=== PATIENT | female | born 1930 | race Caucasian/White ===

== ENCOUNTER 2018-04-13 11:33 | Observation (INO) ==
[2018-04-13 20:37] LABS: BASO# 0.04 X1000 (0.0-0.2); BASO% 0.3 % (0.0-0.8); EOS# 0.05 X1000 (0.0-0.7); EOS% 0.4 % (0.0-10.0); HEMATOCRIT 37.5 % (37.0-47.0); HEMOGLOBIN 11.9 g/dL (12.0-16.0); IMM GRAN% 0.8 % (0.0-0.5); LYMPH# 2.67 X1000 (1.2-3.4); LYMPH% 21.7 % (20.5-51.1); MCH 29.3 PG (27-31); MCHC 31.7 g/dL (33-37); MCV 92.4 FL (81-99); MONO# 1.12 X1000 (0.11-0.59); MONO% 9.1 % (1.7-9.3); MPV 9.6 FL (7.4-10.4); NEUT% 67.7 % (42.2-75.2); PLT 316 X1000 (130-400); RBC 4.06 XMIL (4.2-5.4); RDW 13.2 % (11.5-14.5); WBC 12.28 X1000 (4.8-10.8)
[2018-04-13 20:57] LABS: CALCIUM 9.8 mg/dL (8.8-10.2); CREATININE 0.9 mg/dL (0.5-0.9); POTASSIUM 4.4 mmol/L (3.5-5.1)
[2018-04-13] MEDS ORDERED: VANCOMYCIN 1 GM/NS 1 GM/250 ML IVPB IV ONE (21:03)
[2018-04-13] MEDS ORDERED: COLCRYS PO ONE ×3 (22:14→22:29)
[2018-04-13] MEDS ORDERED: DECADRON IV ONE (22:15)
[2018-04-13 22:58] LABS: CHOLESTEROL 164 mg/dL (0-200); HDL 66 mg/dL (45-65); LDL 77 mg/dL; TRIGLYCERIDES 105 mg/dL (35-135); VLDL 21 mg/dL
[2018-04-13] MEDS ORDERED: ZOFRAN IV PRN (23:04)
[2018-04-13] MEDS ORDERED: TYLENOL PO PRN (23:04)
--- NOTE | 2018-04-14 06:54 | HISTORY AND PHYSICAL ---
CHIEF COMPLAINT: Right hand pain and swelling. HISTORY OF PRESENT ILLNESS: This is a very pleasant 88-year-old female lying in the ER stretcher, answers all questions appropriately. She states that over the last few days, her hand has become more and more tender and swollen. Her daughter is at the bedside and supports what her mother is saying. Patient has a history of gouty arthritis, osteoarthritis, hypertension, hyperlipidemia, hypothyroidism, and has had a valve repair though she is unsure if it was aortic or mitral. It was bovine in nature. The patient received a hand x-ray and laboratory data in the emergency room. She will be admitted in observation status for further evaluation and treatment. PAST MEDICAL HISTORY: See HPI. PREVIOUS SURGICAL HISTORY: 1. Valve repair, unknown whether it was mitral or aortic. It was bovine in nature. 2. Hysterectomy. SOCIAL HISTORY: Lives at home. No tobacco, alcohol or illicit drugs. FAMILY HISTORY: One parent had nonspecific cardiac disease. Denies any other illness in family members. ALLERGIES: No known drug allergies. HOME MEDICATIONS: A list of home medications is not obtainable at this time. Order was placed for nursing to place medications in the computer. These will be restarted when appropriate. PHYSICAL EXAMINATION: VITAL SIGNS: Temp 98 degrees, pulse 86, respirations 16, blood pressure 127/52, oxygen saturation 100%. GENERAL: Very pleasant 88-year-old female, alert and oriented x3. Answers all questions appropriately. No acute distress. HEENT: Head is atraumatic, normocephalic. Pupils equal, round and reactive to light. Extraocular eye movements intact. Sclerae nonicteric. Conjunctivae is pink. Oral mucosa is moist. NECK: Supple. No JVD. No thyromegaly. Trachea is midline. No cervical lymphadenopathy. CARDIAC: S1, S2 appreciated. Systolic ejection murmur noted greater on the left side. No gallops. No rubs. Old midline incision line scar noted on chest. LUNGS: Clear to auscultation bilaterally. No rhonchi, wheezes, rales. Symmetric rise and fall of respirations. ABDOMEN: Soft, nondistended, nontender. Bowel sounds present all 4 quadrants. Normoactive. No pulsatile masses. No organomegaly. EXTREMITIES: Lower extremities: No cyanosis, clubbing or edema. 2+ pedal pulses bilaterally. Upper extremities: Left arm, no cyanosis, clubbing or edema. Right arm: Edema mid forearm to hand. No erythema. Tender to palpation. Warm to touch. Increased swelling in the MCV and PIP joint. There was swelling in all MCP and PIP joints. The patient was not able to make a closed fist and also would not allow passive range of motion in her wrist or bend her wrist herself related to pain. GENITOURINARY: No bladder distention. SKIN: Warm, dry and intact. No acute lesions or rash. DIAGNOSTIC DATA: X-ray of the right hand shows advanced osteoarthritis of the hand LABORATORY DATA: WBC 12.28, hemoglobin 11.9, hematocrit 37.5, platelet count 316,000. Sodium 141, potassium 4.4, chloride 102, carbon dioxide 26, BUN 20, creatinine 0.9, glucose 109, uric acid 6. ASSESSMENT AND PLAN: 1. Gouty arthritis flare versus septic joint. Appears to be a gout flare. Patient has had gout flare in the past. We will give 1.2 of Colchicine one time as well as 2 mg of dexamethasone IV. Defer further treatment to Ortho after their consultation. Patient received 1 gram of vancomycin in the emergency room; however, does not appear to be a septic joint or any type of cellulitis. We will not continue antibiotics at this time. Again, we will defer to primary team. 2. Hypertension. We will continue patient's home medications when they have been reconciled. 3. Hyperlipidemia. We will continue patient's home medications once they have been placed in the computer. Check a lipid profile. 4. Hypothyroidism. Check a TSH. We will continue home medications when reconciled. Further recommendations based on patient's clinical course. Dictated by GREG Sharma for Nohemi Nieto MD cc: GREG Sharma MD Kenneth E. Mashburn I performed an independent exam of this patient at bedside with PHARMACY AFFAIRS ASSISTANT and discussed the above plan with PHARMACY AFFAIRS ASSISTANT. It was difficult to assess pt's passive or active range of movement to discern arthritic vs. soft tissue inflammatory etiology. Pt did display evidence of synovitis of the R wrist. Pt. does have inflammatory arthritic signs. An arthrocentesis of joint by orthopedist will illuminate etiology better. Clinical response to above treatment may also help. MTDD
[2018-04-14 07:34] LABS: INR 1.04; PROTIME 14.4 Seconds (11.0-16.0)
[2018-04-14 07:55] LABS: AGAP 13; BUN 20 mg/dL (8-22); CALCIUM 9.3 mg/dL (8.8-10.2); CHLORIDE 105 mmol/L (98-107); COSMO 286; CREATININE 0.8 mg/dL (0.5-0.9); ESTIMATED GFR > 60; GLUCOSE 135 mg/dL (70-104); POTASSIUM 4.3 mmol/L (3.5-5.1); SODIUM 141 mmol/L (136-145); TCO2 23 mmol/L (25-35)
[2018-04-14 08:04] LABS: BASO# 0.01 X1000 (0.0-0.2); BASO% 0.1 % (0.0-0.8); HEMATOCRIT 36.2 % (37.0-47.0); HEMOGLOBIN 11.5 g/dL (12.0-16.0); IMM GRAN# 0.07 X1000 (0.0-0.04); IMM GRAN% 0.6 % (0.0-0.5); LYMPH# 1.03 X1000 (1.2-3.4); MCH 29.1 PG (27-31); MCHC 31.8 g/dL (33-37); MCV 91.6 FL (81-99); MONO# 0.18 X1000 (0.11-0.59); MONO% 1.6 % (1.7-9.3); MPV 9.7 FL (7.4-10.4); NEUT# 10.13 X1000 (1.4-6.5); NEUT% 88.7 % (42.2-75.2); PLT 303 X1000 (130-400); RBC 3.95 XMIL (4.2-5.4); RDW 12.9 % (11.5-14.5); WBC 11.42 X1000 (4.8-10.8)
[2018-04-14 08:27] LABS: BANDS 2 % (0-1); LYMPHS 4 % (21-51); SEGS 94 % (42-75)
[2018-04-14] MEDS ORDERED: PRINIVIL PO SCH (09:00)
--- NOTE | 2018-04-14 09:05 | CONSULTATION ---
DATE OF CONSULTATION: 04/14/2018 CHIEF COMPLAINT: Right hand pain and swelling. HISTORY OF PRESENT ILLNESS: This is an 88-year-old female who is lying in the bed comfortably. She reports that over the past week or so, her right hand has been swelling and becoming more painful. Her family is at the bedside and states that she does have a history of gout and that this hand has flared up similarly in the past. They report she also has history of osteoarthritis and high blood pressure with hypothyroidism. She got an x-ray several days ago at her doctor's office and then came to the emergency room for evaluation and treatment. PAST MEDICAL HISTORY: 1. Gout. 2. Arthritis. 3. High blood pressure. 4. Hyperlipidemia. 5. Hypothyroidism. 6. She states she has heart problems with some sort of aortic or mitral valve repair, she is unsure. PAST SURGICAL HISTORY: The valve repair and not sure if it is mitral or aortic. She has also had a hysterectomy. SOCIAL HISTORY: She lives at home. She denies alcohol, tobacco, or drug use. FAMILY HISTORY: Positive for cardiac disease. ALLERGIES: There are no known drug allergies. MEDICATIONS: She is on B12 1000 mcg daily, Aricept 10 mg daily, Pepcid 20 mg daily, Flonase daily, lisinopril 5 mg daily, lovastatin 20 mg daily, metoprolol succinate 50 mg daily, and Lyrica 75 mg twice daily. PHYSICAL EXAMINATION: Vital Signs: Temperature 98 degrees, pulse rate 72, blood pressure 121/55, 97 percent on room air. General: Patient is awake and alert. She answered all questions appropriately. HEENT: Head is atraumatic and normocephalic. Pupils equal, round, and reactive to light. Mucous membranes are moist. Neck: Supple. Cardiac: S1, S2. Normal rate and rhythm. Lungs: There is equal chest expansion bilaterally. Abdomen: Soft, nontender. Extremities: The right upper extremity has some mild swelling to the right wrist and hand. There is a good radial pulse. There is decreased range of motion to the wrist and hand due to swelling and pain. It is slightly warm to the touch. There is more swelling in the PIP joints and CMC joints. There is also mild to moderate swelling to the MCP joint. The patient is still not able to make a closed fist and cannot touch her fingers to her thumb appropriately. LABORATORY DATA: White blood cell 11.42, hemoglobin 11.5, hematocrit 36.2. Sodium 141, potassium 4.3, chloride 105, BUN 20, creatinine 0.8, glucose 135. TSH 4.36. Uric acid 6. ASSESSMENT AND PLAN: Gouty arthritis. We agree with the recommendations of the hospitalist. We will continue steroids and antibiotics in the hospital. At this time, I will repeat an x-ray to see if there are any changes. There is no evidence of fluid collection in the hand. Will defer an MRI at this time. If an abscess develops or if the inflammation and swelling get worse, we will obtain MRI of the hand. We will follow her in the hospital and see how she is doing. Dictated by GREG Barragan for Sony Yi MD cc: GREG Barragan MD
--- NOTE | 2018-04-14 09:10 | Diag Imaging Result Doc PS360 ---
EXAM: HAND 2 VIEWS RIGHT INDICATION: hand pain, swelling. TECHNIQUE: 04/12/2018 COMPARISON: None. FINDINGS: Multi joint degenerative arthropathy is stable as compared to the very recent prior study. There is no discrete fracture, dislocation, or significant intrinsic osseous lesion, otherwise. Soft tissue edema at the dorsum of the hand and wrist on the previous study has improved by plain radiograph. IMPRESSION: Improving soft tissue edema. Otherwise, stable plain radiograph of the right hand. Electronically signed by Sony Capps 04/14/2018 9:07 AM
[2018-04-14] MEDS: PEPCID PO SCH (10:13)
[2018-04-14] MEDS: VITAMIN B-12 PO SCH (10:13)
[2018-04-14] MEDS: LYRICA PO SCH ×2 (10:13→20:29)
[2018-04-14] MEDS: THERA M PLUS PO SCH (10:14)
[2018-04-14] MEDS: TOPROL XL PO SCH (10:14)
[2018-04-14] MEDS: OSCAL 500 + D PO SCH (10:14)
[2018-04-14] MEDS: FLONASE NAS SCH (10:14)
[2018-04-14] MEDS: ARICEPT PO SCH (10:14)
--- NOTE | 2018-04-14 15:59 | PROGRESS NOTE ---
DATE: 04/14/2018 SUBJECTIVE: This morning Ms. aMriano refers to be doing a lot better. According to her, the hands look less swollen, less erythematous, but is still painful. She has had multiple bouts of diarrhea, I guess partly because of the antibiotics but it could also be because of the colchicine. OBJECTIVE: Vital Signs: Blood pressure is 129/61, pulse is 64, respiration is 18, temperature 97.8 degrees. General: Ms. Mariano is an 88-year-old female. She was in bed, no distress. Mucosa is pink and moist. Anicteric. Acyanotic. Neck: Supple. Chest: Good air entry bilaterally. There were no crepitations, no rhonchi. Cardiovascular: Regular rate and rhythm. No murmurs, no rubs, no gallops. Abdomen: Soft, nontender. Bowel sounds present. Extremities: No pedal edema. Central Nervous System: Patient was awake, alert. Does have episode of memory gaps. Musculoskeletal: The right hand is minimally swollen in all the digits. The 2nd metacarpal joint is more swollen than the rest, despite all of them are swollen. There was no fluctuation or any signs of possible abscess formation. LABORATORY DATA: Has been reviewed. Chemistry is completely normal. WBC is 11.42, hemoglobin is 11.5, platelet count of 303,000. ASSESSMENT: 1. Possible gout. Gout arthritis flare. The patient was given a dose of colchicine and dexamethasone. It appears, however, that she had remarkable diarrhea and stomach upset, so we will discontinue that and put her on NSAIDs. We will also add PPI for gastric protection. 2. The patient has been evaluated already by Orthopedics. 3. Hypertension control. The patient is on lisinopril and metoprolol. Because of the suspicion of gout I have discontinued the lisinopril and will change it to losartan which has uricosuric properties. 4. Mild dementia noted. Patient is on Aricept at home. We will continue with her home medications. cc: Zak Arenas MD
[2018-04-14] MEDS: NS 1,000 ML IV SCH (16:00)
--- NOTE | 2018-04-14 17:22 | ECHO REPORT ---
ORDER DATE: 04/13/2018 INDICATION: An 88-year-old female with hypertension, hyperlipidemia, heart murmur, status post aortic valve replacement. M-MODE MEASUREMENTS: Left ventricle end diastole: 3.2. Left ventricle end systole: 2.1. Posterior wall: 0.9. Interventricular septum: 0.8. Left atrium: 4.7. Aortic root: 2.4. SUMMARY OF 2-DIMENSIONAL IMAGIN. Left ventricular function is normal. Ejection fraction estimated at 58%. The chamber is not dilated. No significant LVH noted. 2. The aortic valve is a prosthetic valve. Color flow mapping unremarkable. Maximum gradient across the valve is 22 mmHg. Mean gradient 11 mmHg. There is no aortic regurgitation. The valve is working properly. 3. The mitral valve is normal with a mild degree of regurgitation. Mild degree of calcification of the mitral annulus. 4. Pulsed wave Doppler of mitral inflow shows mild reversal of the E/A ratio. 5. Tissue Doppler of septal and lateral mitral annulus averages 11 cm. There is no diastolic dysfunction. 6. The tricuspid valve shows a mild degree of regurgitation. 7. The inferior vena cava is not dilated. 8. Pulmonary pressure estimated at 32 mmHg. 9. The pulmonic valve is normal. SUMMARY: This study shows: 1. Normal left ventricular systolic function, ejection fraction of 58%. 2. Normally functioning prosthetic aortic valve. 3. No diastolic dysfunction. 4. Pulmonary pressure 32 mmHg. 5. No pericardial effusion. 6. The atria appear to be normal. 7. Right ventricle unremarkable. Clinical correlation recommended. cc: MD Nohemi Dotson MD
[2018-04-14] MEDS: MEVACOR PO SCH (20:29)
[2018-04-14] MEDS: NAPROSYN PO SCH (20:30)
[2018-04-14] MEDS: HALDOL IM PRN (21:48)
[2018-04-14] MEDS ORDERED: HALDOL ONE (21:50)
[2018-04-15] MEDS: NS 1,000 ML IV SCH (06:11)
[2018-04-15 07:19] LABS: BASO# 0.02 X1000 (0.0-0.2); BASO% 0.3 % (0.0-0.8); EOS# 0.03 X1000 (0.0-0.7); EOS% 0.4 % (0.0-10.0); HEMATOCRIT 32.1 % (37.0-47.0); HEMOGLOBIN 10.3 g/dL (12.0-16.0); IMM GRAN# 0.03 X1000 (0.0-0.04); IMM GRAN% 0.4 % (0.0-0.5); LYMPH% 26.6 % (20.5-51.1); MCH 29.4 PG (27-31); MCHC 32.1 g/dL (33-37); MCV 91.7 FL (81-99); MONO# 0.49 X1000 (0.11-0.59); MONO% 6.2 % (1.7-9.3); MPV 9.8 FL (7.4-10.4); NEUT# 5.23 X1000 (1.4-6.5); NEUT% 66.1 % (42.2-75.2); PLT 292 X1000 (130-400); RDW 12.7 % (11.5-14.5)
[2018-04-15 07:59] LABS: ALBUMIN 2.9 g/dL (3.5-5.0); CALCIUM 8.6 mg/dL (8.8-10.2); CREATININE 1.1 mg/dL (0.5-0.9); POTASSIUM 4.1 mmol/L (3.5-5.1); TOTAL BILIRUBIN 0.19 mg/dL (0.20-1.00); TOTAL PROTEIN 5.8 g/dL (6.3-8.3)
[2018-04-15] MEDS: SYNTHROID PO SCH (08:53)
[2018-04-15] MEDS: PEPCID PO SCH (08:53)
[2018-04-15] MEDS: THERA M PLUS PO SCH (08:53)
[2018-04-15] MEDS: ASPIRIN PO SCH (08:53)
[2018-04-15] MEDS: VITAMIN B-12 PO SCH (08:53)
[2018-04-15] MEDS: COZAAR PO SCH (08:53)
[2018-04-15] MEDS: ARICEPT PO SCH (08:53)
[2018-04-15] MEDS: OSCAL 500 + D PO SCH (08:54)
[2018-04-15] MEDS: LYRICA PO SCH ×2 (08:54→20:24)
[2018-04-15] MEDS: FLONASE NAS SCH (08:54)
[2018-04-15] MEDS: TOPROL XL PO SCH (08:54)
[2018-04-15] MEDS: CULTURELLE PO SCH (08:54)
[2018-04-15] MEDS: NAPROSYN PO SCH ×2 (08:54→20:24)
[2018-04-15] MEDS: PROTONIX PO SCH (08:54)
--- NOTE | 2018-04-15 13:50 | PROGRESS NOTE ---
DATE: 04/15/2018 SUBJECTIVE DATA: Ms. Mariano reports that her right hand feels much better today. She reports the swelling has significantly decreased. She reports she can move the hand much better. She reports her pain is a 2 out of 10 at this time. OBJECTIVE DATA: There is minimal to mild swelling to the right hand. There is slightly decreased range of motion to the hand and wrist. There is good radial pulse. There is no redness or signs of infection. The hand is warm. There is good capillary refill in the fingers. There is a 4/5 patient access director strength. The look of the hand has much improved since yesterday. ASSESSMENT: Gouty arthritis flare up, right hand. PLAN: Will plan to monitor Ms. Mariano. She has much improved. We will continue the recommendations of her doctor. She can follow up with Orthopedics as needed. Dictated by GREG Barragan for Sony Yi MD cc: GREG Barragan MD
[2018-04-15] MEDS ORDERED: 1/2 NS 1,000 ML IV SCH (16:00)
--- NOTE | 2018-04-15 20:18 | PROGRESS NOTE ---
DATE: 04/15/2018 SUBJECTIVE: Today Ms. Mariano refers to be doing a whole lot better. The daughter was at the bedside at the time of the encounter. She said there is swelling in the right hand. It is looking a lot better. The patient has not had anymore bowel movements. OBJECTIVE: Vital Signs: Blood pressure is 101/54, pulse is 60, respiration is 16, temperature is 97.9. The patient was saturating about 93% on room air. General: Ms. Mariano is an 88-year-old female. She was in bed, no distress. HEENT: Mucosa is pink and moist. Anicteric. Acyanotic. Neck: Supple. Chest: Good air entry bilaterally. There were no crepitations, no rhonchi. Cardiovascular: Regular rate and rhythm. No murmurs, no rubs, no gallops. Gastrointestinal: Abdomen was soft, nontender. Bowel sounds present. There was no hepatosplenomegaly. Extremities: No pedal edema. Distal pulses present. Central Nervous System: Patient is awake, alert, oriented. Still has some memory gaps, but for most part she follows basic commands and sustains rational conversation. Musculoskeletal: The right hand still minimally swollen, but erythematous changes from yesterday. It looks a lot better. LABORATORY DATA: WBC is down to 7.90, hemoglobin is 10.3, platelet count of 293 ,000. Chemistry is also reviewed. Sodium is 146, potassium is 4.1, chloride is 101, bicarb is 23, creatinine is 1.1. CURRENT MEDICATIONS: Have also been reviewed. ASSESSMENT: 1. Gout arthritis with flare. The patient is currently on naproxen. There has been remarkable improvement on her hand. We are going to continue the current management. Orthopedics has reviewed the patient as well. 2. Hypertension, controlled. 3. Mild dementia noted. 4. Mild hypernatremia with hyperchloremia likely due to IV fluids. We have changed the fluids to half-normal saline. 5. Acute kidney injury. Creatinine has gone up to 1.1 this morning. We are going to continue with the hydration. Re-evaluate this tomorrow morning. If it gets any worse , we will we will discontinue the NSAIDs and do more testing on this. Disposition: I think if Ms. Mariano continues to be clinically stable as she is today and labs look well tomorrow, we will be able to discharge her. We will get physical therapy consult today and will also advise that she sit up in a chair at least twice per day. cc: Zak Arenas MD MTDD
[2018-04-15] MEDS: HALDOL IM PRN (20:24)
[2018-04-15] MEDS: MEVACOR PO SCH (20:24)
[2018-04-16 05:07] VITALS: BP 131/57
[2018-04-16 07:24] LABS: C REACTIVE PROT QUANT 39.54 mg/L (0.00-5.00); URIC ACID 7.3 mg/dL (2.4-5.7)
[2018-04-16 07:27] LABS: ALBUMIN 2.9 g/dL (3.5-5.0); CALCIUM 8.5 mg/dL (8.8-10.2); PHOSPHORUS 3.2 mg/dL (2.7-4.5)
--- NOTE | 2018-04-16 08:38 | PROGRESS NOTE ---
DATE: 04/16/2018 SUBJECTIVE DATA: Ms. Mariano reports that her right hand is much improved since she was admitted. She reports the swelling has gotten much better. She reports her pain is a 1 out of 10 at this time. She reports her strength is getting better also. OBJECTIVE DATA: There is still mildly decreased range of motion to the right hand and wrist. There is good radial pulse. There is no redness or signs of infection. The hand is warm. There is good capillary refill in the fingers. There is [id number] swelling in the right hand. 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 ASSESSMENT: Gouty arthritis flare up, right hand. PLAN: Ms. Mariano is much improved. We will follow up her outside of the hospital as needed. She can continue to take her NSAIDs as long as her kidney function stays under control. All questions were answered. Dictated by GREG Barragan for Sony Yi MD cc: GREG Barragan MD
[2018-04-16] MEDS ORDERED: CALMOSEPTINE OINTMENT TOP PRN (09:05)
[2018-04-16] MEDS: NAPROSYN PO SCH (09:10)
[2018-04-16] MEDS: PEPCID PO SCH (09:10)
[2018-04-16] MEDS: CULTURELLE PO SCH (09:10)
[2018-04-16] MEDS: ASPIRIN PO SCH (09:10)
[2018-04-16] MEDS: THERA M PLUS PO SCH (09:10)
[2018-04-16] MEDS: SYNTHROID PO SCH (09:11)
[2018-04-16] MEDS: ARICEPT PO SCH (09:11)
[2018-04-16] MEDS: LYRICA PO SCH (09:11)
[2018-04-16] MEDS: OSCAL 500 + D PO SCH (09:11)
[2018-04-16] MEDS: VITAMIN B-12 PO SCH (09:11)
[2018-04-16] MEDS: PROTONIX PO SCH (09:11)
[2018-04-16] MEDS: TOPROL XL PO SCH (09:11)
[2018-04-16] MEDS: FLONASE NAS SCH (09:11)
[2018-04-16] MEDS: COZAAR PO SCH (09:11)
--- NOTE | 2018-04-17 05:39 | DISCHARGE SUMMARY ---
ADMISSION DATE: 04/13/2018 DISCHARGE DATE: 04/16/2018 DISPOSITION: Home. FOLLOWUP: 1. Dr. Hebert. 2. Dr. Yi. CONSULTATION DURING THIS ADMISSION: Orthopedics was consulted. Patient was seen by Dr. Yi. INVASIVE PROCEDURES DONE DURING THIS ADMISSION: None. IMAGING STUDIES OF SIGNIFICANCE: 1. Echocardiogram showed an ejection fraction of 58%. No diastolic dysfunction and no valvular abnormalities. 2. X-ray of the hand showed improving soft tissue edema. ADMISSION DIAGNOSES: 1. Gouty arthritis flare versus septic joint. 2. Hypertension. 3. Dyslipidemia. 4. Hypothyroidism. DIAGNOSES AT THE TIME OF DISCHARGE: 1. Gout arthritis flare. This was controlled initially with colchicine, but had to be transitioned to naproxen because of gastrointestinal side-effects. 2. Hypertension. Lisinopril was changed to losartan because of uricosuric properties. 3. Mild dementia noted. 4. Mild hypernatremic and hyperchloremia was corrected with changes in intravenous fluids. 5. Acute kidney injury improved. DISCHARGE MEDICATIONS: 1. Famotidine 20 mg p.o. daily. 2. Metoprolol 50 mg daily. 3. Cyanocobalamin. 4. Donepezil 10 mg p.o. daily. 5. Lovastatin 20 mg daily. 6. Pregabalin 75 mg b.i.d. 7. Aspirin 81 mg daily. 8. Levothyroxine 75 mcg daily. 9. Losartan 25 mg daily. 10. Pantoprazole 40 mg daily. 11. Naproxen 250 b.i.d. SPECIAL RECOMMENDATION: Patient to do a BMP in 1 week, to follow up on the renal function since she is on NSAIDs. PRESENTING COMPLAINT: Right hand pain and swelling. HISTORY OF PRESENTING COMPLAINT: Ms. Mariano is an 88-year-old very sweet lady, who was brought into the emergency department because of swelling and tenderness to the right hand. Upon presentation, patient was evaluated. X-ray was done, which was unrevealing. She was subsequently admitted for suspicion of gouty flare versus a septic arthritis. Initially, Ms. Mariano was started on colchicine and vancomycin for possible septic arthritis, and Orthopedic were consulted. Ms Mariano was seen subsequently by Orthopedics, was evaluated thoroughly. Recommendation was to treat as gout arthritis, and that was no fluctuation in the affected joint to be aspirated. During the course of the hospital stay, Ms. Mariano's hand improved. All the swelling and the redness got remarkably improved. She did have some side-effects including nausea, vomiting, and diarrhea to either the antibiotics or the colchicine, both of which got stopped. She was subsequently started on naproxen, which continued to improve her gouty flare. Ms. Mariano has a history of gout arthritis. However, she does not have any tophi, and her renal function is fine; and she does not have any flares that often. As a matter of fact over the years, this is probably one in about 5 years. So I do not think she needs any medication at this point for prevention. She is, however, supposed to follow up with her primary care doctor to discuss more on that. Ms. Mariano, this morning, refers to be feeling a whole lot better. The daughter was at the bedside at the time of the encounter. Her blood pressure was 131/57, pulse was 57, respirations 16, temperature 97.6 degrees. The patient was clinically stable. The right hand looked remarkably improved. She was, therefore, being discharged in stable condition. All the discharge instructions have been discussed with her and the daughter at the bedside. Both voiced understanding. TIME SPENT FOR DISCHARGE: 36 minutes. cc: MD Blas Fairchild MD John R. Riehl, MD
== END 2018-04-16 16:49 | disposition home or self-care (01) ==
LOC: 3N 11:33 → ED 11:33 → SUATTDRO 22:51
PROVIDERS: ATTEND Internal Medicine
CPT/HCPCS: 73120; 80048; 80053; 80061; 80069; 84443; 84550; 85025; 85610; 85651; 86140; 87040; 93306; 96365; 96375; 97162; 97530; 99285; A9270; G8978; G8979; J1100; J1630; J3370; J7030